=== PATIENT | male | born 1990 | race Caucasian/White ===

== ENCOUNTER 2018-05-06 19:22 | Emergency (ER) | payer SELFPAY ==
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
--- NOTE | 2018-05-07 08:16 | CR ---
[id number] RAD/RAD Ankle Left 3V Min Exam: RAD Ankle Left 3V Min Indication:SLIPPED ON ICE. Comparison: No prior imaging for comparison. Discussion: Possible mild soft tissue swelling over the lateral malleolus. Correlate clinically. Overall, no significant widening of the mortise to suggest lateral ligamentous laxity on this examination. Again, correlate for clinical site of pain. No underlying fracture or dislocation. Impression: No acute osseous findings. Сергей Torre MD 05/07/18 0815 Thank you for allowing us to participate in the care of your patient.
== END 2018-05-06 20:41 | disposition home or self-care (01) ==
LOC: VM.ED 19:22
DX: S93.402A Sprain of unspecified ligament of left ankle, initial encounter (principal); F17.210 Nicotine dependence, cigarettes, uncomplicated; W00.0XXA Fall on same level due to ice and snow, initial encounter
CPT/HCPCS: 73610-LT; 99283; 99283-GF

== ENCOUNTER 2021-01-12 12:48 | Emergency (ER) | payer MEDICAID ==
[2021-01-12] MEDS ORDERED: Take Home: Naproxen 500 MG Tab, 4 Tab Pack PO ONE (13:33)
--- NOTE | 2021-01-12 13:49 | CR ---
[id number] RAD/RAD Shoulder Left 2V Min EXAM: 4 VIEWS LEFT SHOULDER. INDICATION: INJURED PUSHING DOG AWAY. COMPARISON: None. DISCUSSION: No fracture, dislocation or other acute osseous abnormality. IMPRESSION: 1. No acute osseous abnormalities. Antelmo Howell DO 01/12/21 3449 Thank you for allowing us to participate in the care of your patient.
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
== END 2021-01-12 13:52 | disposition home or self-care (01) ==
LOC: VM.ED 12:48
DX: S43.402A Unspecified sprain of left shoulder joint, initial encounter (principal); X58.XXXA Exposure to other specified factors, initial encounter
CPT/HCPCS: 73030-LT; 99283; 99283-25; A9270-GY

== ENCOUNTER 2022-11-16 10:06 | Emergency (ER) | payer MEDICAID ==
[2022-11-16] MEDS ORDERED: Sodium Chloride 0.9% 10 ML Syringe FLUSH PRN (10:17)
[2022-11-16] MEDS ORDERED: Aspirin 81 MG Tab.Chew PO ONE (10:43)
[2022-11-16 10:59] LABS: BASOPHILS ABSOLUTE AUTO 0.1 x10^3/uL (0.0-0.2); BASOPHILS PERCENT AUTO 0.7 % (0.2-1.2); EOSINOPHILS ABSOLUTE AUTO 0.1 x10^3/uL (0.0-0.5); EOSINOPHILS PERCENT AUTO 1.1 % (0.0-4.0); HEMATOCRIT 45.7 % (40.0-52.0); HEMOGLOBIN 16.1 g/dL (14.0-18.0); IMMATURE GRAN ABSOLUTE AUTO 0.02 x10^3/uL (0.00-0.07); LYMPHOCYTES PERCENT AUTO 26.8 % (25.0-50.0); MEAN CORPUSCULAR HEMOGLOBIN 30.5 pg (26.0-32.0); MEAN CORPUSCULAR HGB CONC 35.2 g/dL (32.0-36.0); MEAN CORPUSCULAR VOLUME 86.6 fL (78.0-93.0); MONOCYTES ABSOLUTE AUTO 0.5 x10^3/uL (0.0-0.8); MONOCYTES PERCENT AUTO 6.5 % (2.0-11.0); NEUTROPHILS ABSOLUTE AUTO 4.9 x10^3/uL (1.8-7.7); NEUTROPHILS PERCENT AUTO 64.6 % (50.0-80.0); PLATELET COUNT,PLT 246 x10^3/uL (130-400); RED BLOOD CELL COUNT 5.28 x10^6/uL (4.5-6.0); WHITE BLOOD CELL COUNT,WBC 7.6 x10^3/uL (4.0-10.0)
[2022-11-16 11:15] LABS: INR 0.9 (2.0-3.5); PROTHROMBIN TIME 10.2 SEC (9.5-12.2)
[2022-11-16 11:27] LABS: A/G RATIO 1.16; ALANINE AMINOTRANSFERASE,ALT 31 U/L (16-63); ALBUMIN 4.4 g/dL (3.4-5.0); ALKALINE PHOSPHATASE 78 U/L (46-116); ASPARTATE AMNIOTRANSFERASE,AST 17 U/L (15-37); BILIRUBIN TOTAL 0.4 mg/dL (0.2-1.0); BLOOD UREA NITROGEN,BUN 22 mg/dL (7-18); CALCIUM 9.2 mg/dL (8.5-10.1); CARBON DIOXIDE,CO2 26 mmol/L (21-32); CHLORIDE,CL 104 mmol/L (98-107); CREATININE 1.2 mg/dL (0.70-1.30); GLUCOSE RANDOM 116 mg/dL (70-99); POTASSIUM,K 3.9 mmol/L (3.5-5.1); PRO B-TYPE NATRIUR PEPT,BNPPRO 60 pg/mL (<=125); PROTEIN TOTAL,TP 8.2 g/dL (6.4-8.2); SODIUM,NA 141 mmol/L (136-145)
[2022-11-16 11:33] LABS: ANION GAP 14.9 mmol/L (5-15); ESTIMATED GFR 81 mL/min (>=60)
== END 2022-11-16 12:15 | disposition home or self-care (01) ==
LOC: VM.ED 10:06
DX: R07.89 Other chest pain (principal)
CPT/HCPCS: 36415; 71045; 80053; 83880; 84484; 85025; 85610; 93005; 99285; A9270

== ENCOUNTER 2024-06-24 10:15 | Emergency (ER) | payer SELFPAY ==
[2024-06-24 10:52] LABS: BASOPHILS PERCENT AUTO 0.3 % (0.2-1.2); EOSINOPHILS PERCENT AUTO 0.4 % (0.0-4.0); HEMATOCRIT 45.1 % (40.0-52.0); HEMOGLOBIN 15.7 g/dL (14.0-18.0); IMMATURE GRAN ABSOLUTE AUTO 0.01 x10^3/uL (0.00-0.07); LYMPHOCYTES ABSOLUTE AUTO 1.5 x10^3/uL (1.0-4.8); LYMPHOCYTES PERCENT AUTO 16.4 % (25.0-50.0); MEAN CORPUSCULAR HGB CONC 34.8 g/dL (32.0-36.0); MONOCYTES ABSOLUTE AUTO 0.6 x10^3/uL (0.0-0.8); MONOCYTES PERCENT AUTO 6.2 % (2.0-11.0); NEUTROPHILS PERCENT AUTO 76.6 % (50.0-80.0); PLATELET COUNT,PLT 256 x10^3/uL (130-400); RED BLOOD CELL COUNT 5.07 x10^6/uL (4.5-6.0); WHITE BLOOD CELL COUNT,WBC 9.2 x10^3/uL (4.0-10.0)
[2024-06-24 10:56] LABS: AMPHETAMINES SCREEN, URINE NEGATIVE (NEGATIVE); BARBITURATE SCREEN,URINE NEGATIVE (NEGATIVE); BENZODIAZEPINES SCREEN,URINE NEGATIVE (NEGATIVE); BUPRENORPHINE SCREEN,URINE NEGATIVE (NEGATIVE); COCAINE METABOLITES,URINE NEGATIVE (NEGATIVE); METHADONE SCREEN, URINE NEGATIVE (NEGATIVE); METHAMPHETAMINE SCREEN, URINE NEGATIVE (NEGATIVE); OXYCODONE SCREEN,URINE NEGATIVE (NEGATIVE); PCP SCREEN,URINE NEGATIVE (NEGATIVE); THC SCREEN,URINE 50 NG/ML POSITIVE (NEGATIVE)
[2024-06-24 11:09] LABS: CALCIUM 9.5 mg/dL (8.5-10.1); CREATININE 0.9 mg/dL (0.70-1.30); EST CRCL DRUG DOSING (CG) 122.01 mL/min
== END 2024-06-24 12:22 | disposition home or self-care (01) ==
LOC: VM.ED 10:15
DX: F41.9 Anxiety disorder, unspecified (principal)
CPT/HCPCS: 36415; 80048; 80143; 80179; 80305-QW; 80307; 85025; 99284